=== PATIENT | male | born 2000 | race Caucasian/White ===

== ENCOUNTER 2022-04-20 20:39 | Emergency (ER) | payer SELFPAY ==
[~2022-04-20] VITALS: Ht 170.2 cm; Wt 64.0 kg
[2022-04-20] MEDS ORDERED: MORPHINE SULFATE 4 MG/ML CPJ (NOT FOR IM USE) IV ONE (21:30)
[2022-04-20] MEDS ORDERED: SODIUM CHLORIDE 0.9% 1,000 ML IV ONE (21:30)
[2022-04-20 21:37] LABS: BASOPHILS % 0.4 % (0.0-2.0); EOSINOPHILS % 0.4 % (0.0-5.0); HEMATOCRIT. 42.8 % (42.0-52.0); HEMOGLOBIN. 14.8 g/dL (14.0-18.0); MEAN CORPUSCULAR HEMOGLOBIN 31.8 pg (28.0-32.0); MEAN PLATELET VOLUME 8.4 fl (7.4-10.4); MONOCYTES % 9.6 % (2.0-8.0); NEUTROPHILS % 69.6 % (40.0-76.0); PLATELET 208 x1000/uL (130-400); RED BLOOD CELL COUNT 4.66 mill/uL (4.7-6.1); RED CELL DISTRIBUTION WIDTH 12.5 % (11.6-14.6)
[2022-04-20 21:45] LABS: CHLORIDE 105 mEq/L (98-107)
[2022-04-20 21:52] LABS: ETHANOL BLOOD < 10 mg/dL
[2022-04-20] MEDS ORDERED: AMOX1TAB16 MT (22:09)
[2022-04-20 22:39] VITALS: BP 129/64
== END 2022-04-20 22:48 | disposition home or self-care (01) ==
LOC: ER 22:19
DX: R42 Dizziness and giddiness (principal); R11.2 Nausea with vomiting, unspecified
CPT/HCPCS: 36415; 80053; 80307; 80320; 80329; 85025; 93005; 96361; 96374; 99284; J2270; J7030; G0480